=== PATIENT | male | born 1950 | race Asian ===

== ENCOUNTER 2016-12-28 20:18 | Emergency (ER) | payer MEDICARE, OTHER ==
[~2016-12-28] VITALS: Ht 170.2 cm; Wt 65.0 kg
[~2016-12-28 20:18] MED LIST: AMLO10TA2 PO; CEPH-264; HYDR12.53 PO; IRON18TA PO
[2016-12-28] MEDS ORDERED: amLODIPine BESYLATE 5 MG TABLET PO ONE (20:45)
[2016-12-28] MEDS ORDERED: cloNIDine HCL 0.1 MG TABLET PO ONE (20:45)
[2016-12-28] MEDS ORDERED: LISI10TA2 PO (21:55)
--- NOTE | 2016-12-28 21:56 | PHYS DOC ---
Past History Past Medical History: Hypertension Past Surgical History: No Surgical History Smoking: Non-smoker Alcohol Use: None Drug Use: None Adult General Chief Complaint Chief Complaint: HYPERTENSION HPI HPI Patient is a 58-year-old gentleman who presents to the ER today secondary to nighttime headaches. Patient has just been seen by his doctor approximately 2 days ago. Patient had a full workup including full labs, CT of his head and CT his abdomen. Patient does have a history that is significant for hypertension, abdominal aortic and rhythm status post repair, patient's medications of an altered I Dr. Burrell. Patient reports he still having nighttime headaches. Patient is currently on lisinopril 2.5 mg daily and metoprolol 25 mg. Patient denies any fevers shakes chills nausea vomiting diarrhea cough cold runny nose. Patient has no weakness in his upper or lower extremities. This. No double vision or blurred vision. No urinary symptoms. No chest pain or shortness of breath. Review of systems: Constitutional: Denies fever or chills Eyes: Denies change in visual acuity, redness, or eye pain HENT: Denies nasal congestion or sore throat All other systems were reviewed and found to be within normal limits, except as documented in this note. Physical exam Constitutional: Well developed, well nourished, no acute distress, non-toxic appearance. HENT: Normocephalic, atraumatic, bilateral external ears normal, oropharynx moist, no oral exudates, nose normal. Eyes: PERRLA, EOMI, conjunctiva normal, no discharge. Neck: Normal range of motion, no tenderness, supple, no stridor. Cardiovascular:Heart rate regular rhythm, Lungs & Thorax: Bilateral breath sounds clear to auscultation Abdomen: Bowel sounds normal, soft, no tenderness, no masses, no pulsatile masses. Skin: Warm, dry, no erythema, no rash. Back: No tenderness, no CVA tenderness. Extremities: No tenderness, no cyanosis, no clubbing, ROM intact, no edema. Neurologic: Alert and oriented X 3, normal motor function, normal sensory function, no focal deficits noted. Psychologic: Affect normal, judgement normal, mood normal. Assessment and plan: 1. 58-year-old gentleman with hypertension and nighttime headaches. I discussed the case fully with Dr. Burrell was recommended that we increase his lisinopril to 10 mg daily. Patient has been given clonidine 0.1 as well as amlodipine 5 mg here in the ED with significant improvement in his blood pressure. Patient's blood pressure is currently 154/86. Patient feels well. Patient currently has no headache is a symptomatically. I discussed with the patient and his to increase his lisinopril and we will write him a new prescription for it. Patient is instructed to follow-up with Dr. Burrell this week. Current Medications Current Medications Current Medications Medications (Trade) Dose Ordered Sig/Arvind Start Time Stop Time Status Last Admin Dose Admin Amlodipine Besylate (Norvasc) 5 mg 1X ONCE 12/28/16 20:45 12/28/16 20:46 DC 12/28/16 21:03 5 MG Clonidine HCl (Catapres) 0.1 mg 1X ONCE 12/28/16 20:45 12/28/16 20:46 DC 12/28/16 21:02 0.1 MG Allergies Allergies Allergies Coded Allergies Type Severity Reaction Last Updated Verified No Known Drug Allergies 03/13/13 No Current Patient Data Vital Signs Vital Signs Date Time Temp Pulse Resp B/P (MAP) Pulse Ox O2 Delivery O2 Flow Rate FiO2 12/28/16 21:03 64 164/104 12/28/16 20:33 20 98 Room Air EKG EKG [] Radiology/Procedures Radiology/Procedures [] Course & Med Decision Making Course & Med Decision Making Pertinent Labs and Imaging studies reviewed. (See chart for details) [] Dragon Disclaimer Dragon Disclaimer This electronic medical record was generated, in whole or in part, using a voice recognition dictation system. Departure Departure: Impression: Primary Impression: Headache Additional Impression: Hypertension Disposition: 01 HOME, SELF-CARE Condition: IMPROVED Referrals: PABLO WIGGINS (PCP) Patient Instructions: General Headache Without Cause, Hypertension Scripts Lisinopril (LISINOPRIL) 10 Mg Tablet 1 TAB PO DAILY, #30 TAB 5 Refills Prov: LIYA PIERRE MD 12/28/16 Problem Qualifiers LIYA PIERRE MD Dec 28, 2016 21:56
[2016-12-28 22:05] VITALS: BP 143/84
[2016-12-31] MEDS ORDERED: AMLO5TAB2 PO (16:40)
== END 2016-12-28 22:08 | disposition home or self-care (01) ==
LOC: ER 20:18
DX: R51 Headache (principal); I10 Essential (primary) hypertension
CPT/HCPCS: 99283

== ENCOUNTER 2016-12-30 05:38 | Inpatient (IN) | payer MEDICARE, OTHER ==
[~2016-12-30] VITALS: Ht 167.6 cm; Wt 64.9 kg
[~2016-12-30 05:38] MED LIST changes: +LISI10TA2 PO
--- NOTE | 2016-12-30 06:27 | EKG ---
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
[2016-12-30] MEDS ORDERED: SUMAtriptan. 6 MG/0.5 ML VIAL SQ ONE (06:30)
[2016-12-30] MEDS ORDERED: KETOROLAC 30 MG/ML VIAL. IV ONE (06:30)
[2016-12-30] MEDS ORDERED: IV NORMAL SALINE 1,000ML 1,000 ML IV SCH ×2 (06:30→11:30)
[2016-12-30] MEDS ORDERED: ONDANSETRON PF 4 MG/2 ML VIAL. IV ONE (06:30)
[2016-12-30 06:36] LABS: BASO # 0.1 x10^3/uL (0.0-0.2); BASO % 1 % (0-3); EOS # 0.1 x10^3/uL (0.0-0.7); EOS % 1 % (0-3); HEMATOCRIT 43.2 % (39.0-53.0); HEMOGLOBIN 15.4 g/dL (13.0-17.5); LYMPH # 1.9 x10^3/uL (1.0-4.8); LYMPH % 23 % (24-48); MEAN CORPUSCULAR HEMOGLOBIN 33 pg (25-35); MEAN CORPUSCULAR HGB CONC 36 g/dL (31-37); MEAN CORPUSCULAR VOLUME 93 fL (79-100); MONO # 0.6 x10^3/uL (0.0-1.1); MONO % 7 % (0-9); NEUT # 5.7 x10^3uL (1.8-7.7); NEUT % 68 % (31-73); PLATELET COUNT 199 x10^3/uL (140-400); RED BLOOD COUNT 4.64 x10^6/uL (4.30-5.70); RED CELL DISTRIBUTION WIDTH 13.1 % (11.5-14.5); WHITE BLOOD COUNT 8.4 x10^3/uL (4.0-11.0)
[2016-12-30 06:51] LABS: ALBUMIN 3.8 g/dL (3.4-5.0); CALCIUM 8.1 mg/dL (8.5-10.1); CREATININE 1.2 mg/dL (0.7-1.3); GFR 60.2; TOTAL BILIRUBIN 1.8 mg/dL (0.2-1.0); TOTAL PROTEIN 7.6 g/dL (6.4-8.2)
[2016-12-30 06:53] LABS: POTASSIUM 2.9 mmol/L (3.5-5.1)
[2016-12-30] MEDS ORDERED: POTASSIUM CHLORIDE 20 MEQ/15 ML ORAL LIQUID. PO ONE (07:00)
--- NOTE | 2016-12-30 07:50 | PHYS DOC ---
General Chief Complaint: HYPERTENSION Stated Complaint: ELEV BLOOD PRESURE HEADACHE Time Seen by MD: 06:09 Source: patient, family Exam Limitations: language barrier Problems: History of Present Illness Initial Comments Patient is a 66-year-old male who comes to the ED with his spouse complaining of headache due to high blood pressure. Patient's [place] language is Amharic, Amharic management aide emergency department employee translated as the history was difficult initially with just me alone. Through the management aide patient and spouse state that 5-7 days ago the patient had a few days of abdominal discomfort and nausea and vomiting. Since that time the patient has had very little to eat as he was afraid he would get sick again , he has had a few sips daily of white rice and plain water. Patient was seen in the emergency department December 28 for headache at that time presumably due to high blood pressure. The patient had just recently had labs and MRI with primary care doctor which at the time were normal. Patient states that his lisinopril was increased from 2.5 mg to 10 mg daily at last visit, and among his other medications he continues to take hydrochlorothiazide 12.5 mg. He's had a persistent headache which has kept him awake at night and contributed to his decreased appetite. Headache is worse when standing and active better when lying. He's had decreased urination with dark urine no further nausea vomiting and no diarrhea no abdominal discomfort. Patient has cardiac history, he specifically denies chest pain shortness of breath diaphoresis arm or neck symptoms palpitations or syncope. Initial blood pressure on arrival 154/90, 15 minutes later after he has settled down its 142/85 patient has not taken his daily medications yet today. Headache is described as global throbbing and severe and as stated worse with activity better with rest. No vision changes no neck stiffness fever chills or rash. No recent travel or tick bites and no lateralizing neuro deficits. No head trauma. Timing/Duration: 1 week, constant Severity: severe Modifying Factors: worse with movement, improves with rest Associated Symptoms: headaches, nausea/vomiting Allergies: Coded Allergies: No Known Drug Allergies (Unverified , 03/13/13) Past Medical History Medical History: other (hypertension, coronary artery disease, ruptured AAA, pulmonary hypertension, CVA) Surgical History: other (AAA repair, cholecystectomy) Social History Smoker: non-smoker Alcohol: occasionally Drugs: none Review of Systems Constitutional: denies chills, denies diaphoresis, denies fever, malaise, weakness EENTM: denies eye pain, denies blurred vision, denies ear pain, denies nose pain, denies throat pain, denies mouth pain Respiratory: denies cough, denies orthopnea, denies shortness of breath, denies wheezing Cardiovascular: denies chest pain, denies edema, denies palpitations, denies syncope Gastrointestinal: abdominal pain, denies constipation, denies diarrhea, nausea , vomiting Genitourinary: see HPI, denies dysuria, denies frequency, denies hematuria Musculoskeletal: denies back pain, denies joint swelling, muscle pain, muscle stiffness (cramping), denies neck pain Psychiatric/Neurological: headache, denies numbness, denies paresthesia, denies seizure, denies tingling, denies weakness Hematologic/Lymphatic: denies blood clots, denies easy bleeding, denies easy bruising Physical Exam General Appearance: WD/WN, moderate distress (ill-appearing, pale appears dry or anemic) Eyes: bilateral eye normal inspection, bilateral eye PERRL, bilateral eye EOMI Ear, Nose, Throat: hearing grossly normal, normal ENT inspection, normal pharynx (very dry mucous membranes) Neck: non-tender, supple Respiratory: chest non-tender, lungs clear, normal breath sounds, no respiratory distress Cardiovascular: normal peripheral pulses, regular rate, rhythm Gastrointestinal: normal bowel sounds, non tender, soft Rectal: deferred Back: no CVA tenderness, no vertebral tenderness Extremities: normal range of motion, non-tender, normal inspection, no pedal edema, no calf tenderness, pelvis stable Neurologic/Psychiatric: media reporter II-XII nml as tested, no motor/sensory deficits, alert, normal mood/affect, oriented x 3 Skin: warm/dry, pallor (poor turgor) Orders, Labs, Meds EKG: Normal sinus rhythm 62 bpm, incomplete right bundle branch block, LVH, baseline artifact no STEMI criteria. Similar to study dated March 13, 2013 on record interpreted by Dr. Flores. PATIENT: JOSIAS DICKEY ACCOUNT: [id number] : 1950 LOCATION: ER AGE: 66 SEX: M EXAM STATUS: REG ER ORD. PHYSICIAN: JOVANY FLORES DO REASON: hyponatremia PROCEDURE: CHEST PA & LATERAL EXAM: Chest 2 views. HISTORY: Weakness, hyponatremia. COMPARISON: 03/13/2013. FINDINGS: Frontal and lateral views of the chest are obtained. There are no confluent infiltrates. There is no pneumothorax or pleural effusion. The heart is not enlarged. The aorta appears tortuous but is stable in contour. Surgical clips project in the right infraclavicular region and at the hiatus. IMPRESSION: 1. No confluent infiltrates. DICTATED AND SIGNED BY: DONALD LOPEZ MD DATE: 12/30/16 0706 CC: PABLO WIGGINS; JOVANY FLORES DO ~ Patient received Toradol 30 mg IV, sumatriptan and 6 subcutaneous, and Zofran 4 mg IV as well as a 1 L normal saline IV bolus upon arrival. 0745: Patient rechecked he's feeling much better his color has improved he is now sitting up with a normal expression. Spouse is not in the room neither is management aide patient advised I would return. 0811: Serum potassium 2.9, sodium 122 patient is symptomatic with his electrolyte abnormalities and will require inpatient treatment. glucose 132, t. bili 1.8, calcium 8.1, trop I 0.026, BNP 478. Patient and spouse are agreeable , they advise no new or worsening symptoms patient is improving headache nearly resolved. Patient still without chest pain or trouble breathing. Through the management aide I clarified with the patient and spouse that primary care doctor is Dr. Licona. I left a message for Dr. Carroll. 0839: Pt discussed with Dr Carroll, after thorough discussion of history, presentation, and findings he recommends inpatient telemetry admission for hydration and electrolyte correction. Impressions: Symptomatic hypovolemic hyponatremia/hypokalemia Persistent headache likely second to above. Hypertension History of recent GI illness with decreased by mouth intake. Departure Time of Disposition: 08:36 Disposition: 09 ADMITTED INPATIENT Condition: IMPROVED JOVANY FLORES DO Dec 30, 2016 07:50
--- NOTE | 2016-12-30 08:00 | EKG ---
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
[2016-12-30] MEDS ORDERED: ONDANSETRON PF 4 MG/2 ML VIAL. IV PRN (08:45)
[2016-12-30] MEDS ORDERED: ACETAMINOPHEN 325 MG TABLET PO PRN ×2 (08:45→12:45)
[2016-12-30 10:55] VITALS: BP 165/93
[2016-12-30] MEDS ORDERED: POTASSIUM CHLORIDE 30 MEQ in IV 1/2 NORMAL SALINE 1,000 ML IV SCH (11:30)
[2016-12-30] MEDS ORDERED: ISOS30TA4 PO (11:38)
[2016-12-30] MEDS ORDERED: LISI2.5T PO (11:38)
[2016-12-30] MEDS ORDERED: METO25TA4 PO (11:38)
[2016-12-30] MEDS ORDERED: HYDROmorphone PF 2 MG/ML VIAL IV PRN (11:45)
[2016-12-30] MEDS ORDERED: ONDANSETRON ODT 4 MG TAB.RAPDIS PO PRN (11:45)
[2016-12-30] MEDS ORDERED: VIT1TABL34 PO (12:26)
[2016-12-30] MEDS ORDERED: OMEG-33 PO (12:26)
[2016-12-30] MEDS ORDERED: ACET325T9 PO (12:26)
[2016-12-30] MEDS ORDERED: CHOL10003 PO (12:26)
[2016-12-30] MEDS ORDERED: ASPI-630 PO (12:26)
[2016-12-30] MEDS ORDERED: ATOR20TA58 PO (12:26)
[2016-12-30] MEDS ORDERED: LISI10TA2 PO (12:31)
[2016-12-30] MEDS ORDERED: ATORVASTATIN CALCIUM 20 MG TABLET PO SCH ×2 (12:45→21:00)
[2016-12-30] MEDS ORDERED: amLODIPine BESYLATE 10 MG TABLET PO SCH (12:45)
[2016-12-30] MEDS ORDERED: ASPIRIN 81 MG TAB.CHEW PO SCH ×2 (12:45→21:00)
[2016-12-30] MEDS ORDERED: ENOXAPARIN 40 MG/0.4 ML DISP.SYRIN. SQ SCH (13:00)
[2016-12-30] MEDS: POTASSIUM CL 40MEQ IN 0.9%NACL 1,000 ML IV SCH (13:55)
[2016-12-30] MEDS: PANTOPRAZOLE IV PUSH 40 MG VIAL. IVP SCH (14:03)
[2016-12-30 14:04] VITALS: BP 129/80
[2016-12-30] MEDS: METOPROLOL TART IMMED RELEASE 25 MG TABLET PO SCH (14:07)
[2016-12-30] MEDS: LISINOPRIL 10 MG TABLET PO SCH (14:07)
[2016-12-30] MEDS: ISOSORBIDE MONONITRATE ER 30 MG TAB.ER.24H PO SCH (14:08)
[2016-12-30] MEDS: CHOLECALCIFEROL (VITAMIN D3) 1,000 UNIT TABLET PO SCH (14:09)
[2016-12-30 15:49] LABS: AMPHETAMINE/METHAMPHETAMINE NEG (NEG); BARBITURATES NEG (NEG); BENZODIAZEPINES NEG (NEG); CANNABINOIDS NEG (NEG); COCAINE NEG (NEG); METHADONE NEG (NEG); OPIATES NEG (NEG); PHENCYCLIDINE NEG (NEG)
[2016-12-30] MEDS ORDERED: ACETAMINOPHEN 325 MG TABLET PO SCH (16:00)
[2016-12-30 16:11] VITALS: BP 128/81
--- NOTE | 2016-12-30 16:34 | RAD ---
Indication: Headache. Grayscale, color-flow and duplex Doppler evaluation of bilateral carotid systems was performed. No significant atherosclerotic plaque is identified in either carotid system. The velocities are normal bilaterally. No velocity elevation or stenosis is identified. Both vertebral arteries demonstrate antegrade flow. Peak CCA velocity on the right is 34 cm/s and on the left 24 cm/s. Peak ICA velocity on the right is 42 cm/s and on the left 32 cm/s. ICA to CCA ratio right is 1.2 and left is 1.3. Impression: No evidence of a hemodynamically significant stenosis.
[2016-12-30 16:40] LABS: BACTERIA,URINE 0 /HPF (0-FEW); BILIRUBIN,URINE NEG (NEG); CLARITY,URINE CLEAR; COLOR,URINE YELLOW; GLUCOSE,URINE NEG (NEG); NITRITE,URINE NEG (NEG); SQUAMOUS EPITHELIAL CELL,UR FEW /LPF; UROBILINOGEN,URINE 0.2 mg/dL (0.2 mg/dL)
[2016-12-30] MEDS ORDERED: CONTRAST GIVEN MC PRN (18:15)
[2016-12-30] MEDS ORDERED: IOHEXOL 300 MG/ML 75 ML VIAL. IV ONE (18:30)
--- NOTE | 2016-12-30 19:02 | RAD ---
CTA scan of the Chest with Contrast (Pulmonary Embolism protocol) 12/30/2016 Clinical History: Chest pain. Elevated d-dimer. Technique: After the intravenous administration of 75 cc of Omnipaque 300, contiguous, 0.625 mm axial sections were obtained through the chest. 3 mm axial and 3D MIP coronal and sagittal reconstructed images were obtained. One or more of the following individualized dose reduction techniques were utilized for this study: 1. Automated exposure control. 2. Adjustment of the mA and/or kV according to patient size. 3. Use of iterative reconstruction technique. Findings: No filling defect is seen within the major branches of either pulmonary artery. There is no CT evidence of pulmonary embolism. The heart is mildly enlarged. Atherosclerotic calcification of the thoracic aorta and its branches is seen. The thoracic aorta is tortuous but tapers normally. A bypass graft is seen extending from the region of the right axillary artery along the right anterolateral chest wall into the abdomen. The inferior extent is not included on this study. Dependent subsegmental atelectasis is seen involving both lungs. No area of consolidation, pleural effusion or pneumothorax is seen. Impression: There is no CT evidence of pulmonary embolism. Electronically signed by: Bryan Santiago MD (12/30/2016 6:58 PM) [facility]
[2016-12-30 19:27] VITALS: BP 112/60
[2016-12-30] MEDS: POTASSIUM CHLORIDE 20 MEQ TABLET.ER. PO SCH (20:19)
[2016-12-30 23:46] VITALS: BP 124/75
--- NOTE | 2016-12-31 02:58 | CONS ---
DATE OF CONSULTATION: 12/30/2016 REFERRING PHYSICIAN: Dr. Carroll. REASON FOR CONSULTATION: Severe headaches. HISTORY OF PRESENT ILLNESS: This is a 66-year-old Sinhala male who was admitted through Emergency Room after he presented with chief complaints of recurrent severe global headache described as throbbing headaches for approximately 10 days. The patient was seen in the Emergency Room on 12/28/2016 and he was found to have severe hypertension. He was given lisinopril 10 mg. The patient, however, was taking 2.5 mg of lisinopril. The patient was worked up by his primary care physician and a brain MRI was performed and revealed no abnormalities. The patient has been taking hydrochlorothiazide 12.5 mg daily, but he continues to have a generalized headaches. He denies photophobia, phonophobia, but he did vomit twice in the last 5 days. At this time of evaluation, the patient denies any headaches, visual disturbances, nausea, vomiting, chest pain, shortness of breath or palpitation, dysarthria, dysphagia or palpitations. His blood pressure has been fluctuating between 154/90-142/85. The patient has not been eating well because of abdominal discomfort and sometimes nausea. PAST MEDICAL HISTORY: Significant for hypertension, pulmonary hypertension, history of stroke. PAST SURGICAL HISTORY: Abdominal aortic aneurysm repair and cholecystectomy. SOCIAL HISTORY: The patient denies smoking, but he drinks alcohol occasionally. 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 CURRENT MEDICATIONS: Multivitamins, fish oil, Lipitor 20 mg p.o. at bedtime, aspirin 81 mg at bedtime, potassium chloride 20 mEq twice daily, Lovenox 40 mg subQ 24 hours, Protonix 40 mg IV daily, metoprolol 25 mg daily, lisinopril 10 mg p.o. daily and Imdur 30 mg daily, vitamin D3 1000 units daily, Tylenol, Dilaudid 2 mg q. 2 hours p.r.n. IV as needed and Zofran 4 mg q. 8 hours or IV 4 hours as needed. PHYSICAL EXAMINATION: GENERAL: Well-developed, well-nourished Sinhala male, not in acute distress. VITAL SIGNS: He weighs 140 pounds. Blood pressure 128/81, respiratory rate 20, pulse is 60 and regular, temperature 97.8, oxygen saturation is 96% on room air. HEENT: Normocephalic, atraumatic, otherwise unremarkable. NECK: Supple. Negative for carotid bruit, lymphadenopathy or thyromegaly. LUNGS: Clear to A and P. CARDIOVASCULAR: Regular rate and rhythm, normal S1, S2. There is no S3, S4 or murmur. ABDOMEN: Soft. Bowel sounds positive. EXTREMITIES: Negative for cyanosis, clubbing or pitting edema. NEUROLOGICAL: Mental Status: The patient is alert and oriented x 3. The speech is fluent. There is no language dysfunction. Memory, judgment, and abstract thinking are normal. The patient denies hallucination or delusion. Cranial nerves: Cranial nerves are intact. Visual beach are full. The pupils are reactive to light and accommodation. Extraocular movements are intact. There is no nystagmus. There is no facial motor or sensory deficit. Hearing is intact bilaterally. The palate is elevated symmetrically. Sternocleidomastoid muscles are powerful bilaterally. The patient shrugs his shoulders symmetrically and protrudes his tongue in the midline without fasciculation or atrophy. Motor: No focal muscle bulk was seen. The tone is normal. The strength is 5/5 throughout. Sensory: Examination revealed normal pinprick, light touch, vibratory and position senses. Deep tendon reflexes were symmetric and hypoactive without pathology responses. Gait: The stance is steady. The patient has normal gait. DIAGNOSTIC DATA: A brain MRI performed on an outpatient basis, was reportedly normal. Current chest x-ray revealed no evidence of acute cardiopulmonary process. Carotid Doppler study revealed no acute stenosis. LABORATORY DATA: CBC revealed white blood cells of 8.4, hemoglobin 15.4, hematocrit 43.2, platelet count 199,000. Chemistry revealed sodium of 122, potassium is 2.9, chloride 87, CO2 22, BUN 11, creatinine 1.2, glucose is 132, calcium 8.1. Liver enzymes are normal. NPB in the high at 478. Troponin level is 0.026. Urine drug screen is negative. Coagulation: D-dimer is high at 5.67. IMPRESSION: 1. Severe global headaches, likely non-migraine headaches, probably secondary to hypertension versus dehydration. 2. Hyponatremia and hypokalemia and hypocalcemia. 3. Hypertension. 4. Coagulopathy. RECOMMENDATIONS: 1. Continue with current management for hypertension. 2. Continue with current care initiated by Dr. Carroll. 3. Correct the underlying hyponatremia slowly. 4. Correct the underlying hypokalemia and hypocalcemia. 5. Continue with aspirin and Lovenox, Tylenol for headaches. M Ramona JACOBO MD DR: NABIL/tiarra JOB#: [id number] / [id number]
[2016-12-31] MEDS: POTASSIUM CL 40MEQ IN 0.9%NACL 1,000 ML IV SCH (04:16)
[2016-12-31 05:50] VITALS: BP 124/81
[2016-12-31 06:52] LABS: BASO # 0.2 x10^3/uL (0.0-0.2); BASO % 3 % (0-3); EOS # 0.4 x10^3/uL (0.0-0.7); EOS % 6 % (0-3); HEMATOCRIT 38.8 % (39.0-53.0); HEMOGLOBIN 13.5 g/dL (13.0-17.5); LYMPH # 1.5 x10^3/uL (1.0-4.8); LYMPH % 24 % (24-48); MEAN CORPUSCULAR HEMOGLOBIN 34 pg (25-35); MEAN CORPUSCULAR HGB CONC 35 g/dL (31-37); MEAN CORPUSCULAR VOLUME 97 fL (79-100); MONO # 0.5 x10^3/uL (0.0-1.1); MONO % 9 % (0-9); NEUT # 3.5 x10^3uL (1.8-7.7); NEUT % 58 % (31-73); PLATELET COUNT 185 x10^3/uL (140-400); RED BLOOD COUNT 4.02 x10^6/uL (4.30-5.70); RED CELL DISTRIBUTION WIDTH 13.5 % (11.5-14.5); WHITE BLOOD COUNT 6.1 x10^3/uL (4.0-11.0)
[2016-12-31 07:11] LABS: ALBUMIN/GLOBULIN RATIO 0.9 (1.0-1.7); CREATININE 1.3 mg/dL (0.7-1.3); GFR 54.9; POTASSIUM 4.7 mmol/L (3.5-5.1); TOTAL BILIRUBIN 0.8 mg/dL (0.2-1.0); TOTAL PROTEIN 6.2 g/dL (6.4-8.2)
[2016-12-31] MEDS ORDERED: PANTOPRAZOLE IV PUSH 40 MG VIAL. IVP SCH (07:30)
[2016-12-31] MEDS: PANTOPRAZOLE IV PUSH 40 MG VIAL. IVP SCH (07:58)
[2016-12-31] MEDS: CHOLECALCIFEROL (VITAMIN D3) 1,000 UNIT TABLET PO SCH (07:59)
[2016-12-31] MEDS: POTASSIUM CHLORIDE 20 MEQ TABLET.ER. PO SCH (07:59)
[2016-12-31] MEDS: LISINOPRIL 10 MG TABLET PO SCH (08:01)
[2016-12-31] MEDS: METOPROLOL TART IMMED RELEASE 25 MG TABLET PO SCH (08:02)
[2016-12-31] MEDS: ISOSORBIDE MONONITRATE ER 30 MG TAB.ER.24H PO SCH (08:03)
[2016-12-31] MEDS ORDERED: OMEGA-3 FATTY ACIDS/FISH OIL 1,000 MG CAPSULE. PO SCH (09:00)
[2016-12-31] MEDS ORDERED: ATORVASTATIN CALCIUM 20 MG TABLET PO SCH (09:00)
[2016-12-31] MEDS ORDERED: ISOSORBIDE MONONITRATE ER 30 MG TAB.ER.24H PO SCH (09:00)
[2016-12-31] MEDS ORDERED: PNEUMOC CONJ VACC 23-VALENT 0.5 ML VIAL. VAX IM ONE (09:00)
[2016-12-31] MEDS ORDERED: CHOLECALCIFEROL (VITAMIN D3) 1,000 UNIT TABLET PO SCH (09:00)
[2016-12-31] MEDS ORDERED: LISINOPRIL 2.5 MG TABLET PO SCH (09:00)
[2016-12-31] MEDS ORDERED: LISINOPRIL 10 MG TABLET PO SCH ×2 (09:00)
[2016-12-31] MEDS ORDERED: amLODIPine BESYLATE 10 MG TABLET PO SCH (09:00)
[2016-12-31] MEDS ORDERED: MULTIVITAMIN I-VITE TABLET. PO SCH (09:00)
[2016-12-31] MEDS ORDERED: ASPIRIN 81 MG TAB.CHEW PO SCH (09:00)
[2016-12-31] MEDS ORDERED: METOPROLOL TART IMMED RELEASE 25 MG TABLET PO SCH (09:00)
--- NOTE | 2016-12-31 09:09 | PN ---
DATE: SUBJECTIVE: The patient stated his headache has improved and this morning feels like throbbing headaches rated at 1/10. He denies nausea, vomiting, abdominal pain, chest pain, shortness of breath or palpitation, dysarthria, dysphagia, weakness or paresthesia. OBJECTIVE: GENERAL: Well-developed, well-nourished Bengali male, not in acute distress. VITAL SIGNS: Afebrile. Temperature 98.1, oxygen saturation is 96% on room air, blood pressure 124/81, respiratory rate 16, pulse is 50. HEENT: Normocephalic, atraumatic, otherwise unremarkable. NECK: Supple. Negative for carotid bruit, lymphadenopathy or thyromegaly. LUNGS: Clear to A and P. CARDIOVASCULAR: Regular rhythm, normal S1, S2. There is no S3, S4 or murmur. ABDOMEN: Soft. Bowel sounds positive. EXTREMITIES: Negative for cyanosis, clubbing or pitting edema. NEUROLOGIC: Normal mental status and intact cranial nerves. There is no focal motor or sensory deficit. Deep tendon reflexes are symmetric and active without pathologic responses. Deep tendon reflexes were symmetric and active without pathology responses. Gait and coordination are was normal. LABORATORY DATA: CBC revealed white blood cells of 6.1, hemoglobin 13.5, hematocrit 38.8, platelet count 185,000. Chemistry revealed sodium of 139, potassium 4.7, chloride 106, CO2 26, BUN 16, creatinine 1.3, glucose 91, and calcium 8. IMPRESSION: 1. Severe headache -- resolved. 2. Hyponatremia -- resolved. 3. Hypokalemia -- resolved. 4. Coagulopathy. RECOMMENDATIONS: Continue with current management initiated by Dr. Carroll. The patient is neurologically stable. M Ramona JACOBO MD DR: NABIL/tiarra JOB#: [id number] / [id number]
--- NOTE | 2016-12-31 09:22 | PDOC2 ---
CONSULT Date of Admission DATE: 12/31/16 TIME: 09:09 Reason for Consult: HTN History of Present Illness Mr Dodd is a 66 year old male admitted to the hospital after several days of abdominal discomfort, decreased oral intake and headache. He was found to be hyponatremic and hypokalemic with elevated blood pressure. He is currently feeling better. He denies any prior cardiac history, he denies chest discomfort , dyspnea or congestive symptoms. He denies edema, palpitations or lightheadedness. He was noted this am to be bradycardic and consult was called for mgmt of blood pressure / medications. Past Medical History Significant for hypertension, pulmonary hypertension, history of stroke. Past Surgical History Abdominal aortic aneurysm repair, fem-fem bypass, and cholecystectomy, cataract surgery bilateral Social History The patient denies smoking, but he drinks alcohol occasionally. He is retired [employer] male. Current Medications Current Medications Sodium Chloride 1,000 ml @ 1,000 mls/hr Q1H IV Last administered on 06:37; Start 12/30/16 at 06:30; Stop 12/30/16 at 07:29; Status DC Ketorolac Tromethamine (Toradol) 30 mg 1X ONCE IV Last administered on 06:38; Start 12/30/16 at 06:30; Stop 12/30/16 at 06:31; Status DC Sumatriptan Succinate (Imitrex) 6 mg 1X ONCE SQ Last administered on 06:38; Start 12/30/16 at 06:30; Stop 12/30/16 at 06:31; Status DC Ondansetron HCl (Zofran) 4 mg 1X ONCE IV Last administered on 12/30/16 06:37 ; Start 12/30/16 at 06:30; Stop 12/30/16 at 06:31; Status DC Potassium Chloride (KCl Oral Soln) 40 meq 1X ONCE PO Last administered on 07:32; Start 12/30/16 at 07:00; Stop 12/30/16 at 07:09; Status DC Ondansetron HCl (Zofran) 4 mg PRN Q4HRS PRN IV NAUSEA/VOMITING; Start at 08:45; Stop 12/31/16 at 08:44; Status DC Acetaminophen (Tylenol) 650 mg PRN Q4HRS PRN PO FEVER; Start 12/30/16 at 08:45 ; Stop 12/30/16 at 12:52; Status DC Sodium Chloride 1,000 ml @ 75 mls/hr [id number] IV ; Start 12/30/16 at 11:30; Stop 12/30/16 at 12:41; Status DC Potassium Chloride 30 meq/ Sodium Chloride 1,015 ml @ 75 mls/hr [id number] IV ; Start 12/30/16 at 11:30; Stop 12/30/16 at 12:41; Status DC Pantoprazole Sodium (Protonix Vial) 40 mg DAILYAC IVP ; Start 12/31/16 at 07:30 ; Stop 12/31/16 at 07:30; Status DC Ondansetron HCl (Zofran Odt) 4 mg PRN Q8HRS PRN PO NAUSEA/VOMITING; Start at 11:45 Hydromorphone HCl (Dilaudid) 2 mg PRN Q2HR PRN IV PAIN; Start 12/30/16 at 11: 45 Amlodipine Besylate (Norvasc) 10 mg DAILY PO ; Start 12/31/16 at 09:00; Stop 12/31/16 at 09:00; Status DC Isosorbide Mononitrate (Imdur) 30 mg DAILY PO ; Start 12/31/16 at 09:00; Stop 12/31/16 at 09:00; Status DC Lisinopril (Prinivil) 2.5 mg DAILY PO ; Start 12/31/16 at 09:00; Stop at 09:00; Status DC Lisinopril (Prinivil) 10 mg DAILY PO ; Start 12/31/16 at 09:00; Stop 12/31/16 at 09:00; Status DC Metoprolol Tartrate (Lopressor) 25 mg DAILY PO ; Start 12/31/16 at 09:00; Stop 12/31/16 at 09:00; Status DC Acetaminophen (Tylenol) 650 mg Q4HRS PO ; Start 12/30/16 at 16:00; Stop at 16:00; Status DC Aspirin (Children'S Aspirin) 81 mg DAILY PO ; Start 12/31/16 at 09:00; Stop at 09:00; Status DC Atorvastatin Calcium (Lipitor) 20 mg DAILY PO ; Start 12/31/16 at 09:00; Stop 12/31/16 at 09:00; Status DC Vitamin D (Vitamin D3) 1,000 unit DAILY PO ; Start 12/31/16 at 09:00; Stop at 09:00; Status DC Lisinopril (Prinivil) 10 mg DAILY PO ; Start 12/31/16 at 09:00; Status UNV Fish Oil (Fish Oil) 1,000 mg DAILY PO Last administered on 12/31/16 07:58; Start 12/31/16 at 09:00 Multivitamins/ Minerals (I-Marcin) 1 tab DAILY PO Last administered on 07:59; Start 12/31/16 at 09:00 Acetaminophen (Tylenol) 650 mg PRN Q4HRS PRN PO PAIN; Start 12/30/16 at 12:45 Amlodipine Besylate (Norvasc) 10 mg DAILY PO ; Start 12/30/16 at 12:45; Stop 12/30/16 at 14:18; Status DC Aspirin (Children'S Aspirin) 81 mg DAILY PO ; Start 12/30/16 at 12:45; Stop at 21:00; Status DC Atorvastatin Calcium (Lipitor) 20 mg DAILY PO ; Start 12/30/16 at 12:45; Stop 12/30/16 at 14:18; Status DC Vitamin D (Vitamin D3) 1,000 unit DAILY PO Last administered on 12/31/16 07: 59; Start 12/30/16 at 12:45 Isosorbide Mononitrate (Imdur) 30 mg DAILY PO Last administered on 12/31/16 08:03; Start 12/30/16 at 12:45 Lisinopril (Prinivil) 10 mg DAILY PO Last administered on 12/31/16 08:01; Start 12/30/16 at 12:45 Metoprolol Tartrate (Lopressor) 25 mg DAILY PO Last administered on 12/30/16 14:07; Start 12/30/16 at 12:45 Pantoprazole Sodium (Protonix Vial) 40 mg DAILYAC IVP Last administered on 07:58; Start 12/30/16 at 12:45 Potassium Chloride/Sodium Chloride 1,000 ml @ 75 mls/hr [id number] IV Last administered on 12/31/16 04:16; Start 12/30/16 at 12:45 Enoxaparin Sodium (Lovenox) 40 mg Q24H SQ Last administered on 12/30/16 14:08 ; Start 12/30/16 at 13:00 Potassium Chloride (Klor-Con) 20 meq BID PO Last administered on 12/31/16 07: 59; Start 12/30/16 at 21:00 Aspirin (Children'S Aspirin) 81 mg HS PO Last administered on 12/30/16 20:20 ; Start 12/30/16 at 21:00 Atorvastatin Calcium (Lipitor) 20 mg HS PO Last administered on 12/30/16 20: 19; Start 12/30/16 at 21:00 Pneumococcal Polyvalent Vaccine (Pneumovax 23) 0.5 ml ONCE ONCE VAX IM ; Start 12/31/16 at 09:00; Stop 12/31/16 at 09:01; Status DC Iohexol (Omnipaque 300 Mg/ml) 75 ml 1X ONCE IV Last administered on 18:17; Start 12/30/16 at 18:30; Stop 12/30/16 at 18:31; Status DC Info (Do NOT chart on this entry -- for MONITORING) 1 each PRN DAILY PRN MC SEE COMMENTS; Start 12/30/16 at 18:15; Stop 01/01/17 at 18:14 Active Scripts Active Reported Lisinopril 10 Mg Tablet 1 Tab PO DAILY LAST DOSE GIVEN: DATE: TIME: NEXT DOSE DUE: DATE: TIME: Preservision Areds Tablet (Vit A/Vit C/Vit E/Zinc/Copper) 1 Each Tablet 1 Each PO DAILY LAST DOSE GIVEN: DATE: TIME: NEXT DOSE DUE: DATE: TIME: Tylenol (Acetaminophen) 325 Mg Tablet 650 Mg PO Q4HRS LAST DOSE GIVEN: DATE: TIME: NEXT DOSE DUE: DATE: TIME: Atorvastatin Calcium 20 Mg Tablet 1 Tab PO DAILY LAST DOSE GIVEN: DATE: TIME: NEXT DOSE DUE: DATE: TIME: Vitamin D3 (Cholecalciferol (Vitamin D3)) 1,000 Unit Tablet 1 Tab PO DAILY LAST DOSE GIVEN: DATE: TIME: NEXT DOSE DUE: DATE: TIME: [place]wn 3 1,000 Mg Softgel ([place]wn-3 Fatty Acids/Fish Oil) 1 Each Capsule 1 Each PO DAILY LAST DOSE GIVEN: DATE: TIME: NEXT DOSE DUE: DATE: TIME: Aspirin 81 Mg Tab.chew 81 Mg PO DAILY LAST DOSE GIVEN: DATE: TIME: NEXT DOSE DUE: DATE: TIME: Isosorbide Mononitrate Er (Isosorbide Mononitrate) 30 Mg Tab.er.24h 1 Tab PO DAILY LAST DOSE GIVEN: DATE: TIME: NEXT DOSE DUE: DATE: TIME: Metoprolol Tartrate 25 Mg Tablet 1 Tab PO DAILY LAST DOSE GIVEN: DATE: TIME: NEXT DOSE DUE: DATE: TIME: Allergies: Coded Allergies: No Known Drug Allergies (Unverified , 03/13/13) Review of System as per HPI General: Alert, Oriented X3, Cooperative, No acute distress HEENT: Atraumatic, EOMI, Mucous membr. moist/pink Lungs: Clear to auscultation, Normal air movement Heart: Normal S1, Normal S2, Other (no gallops, clicks or rubs, mildly bradycardic) Abdomen: Normal bowel sounds, Soft, No tenderness Extremities: No cyanosis, No edema, Other (palpable pulses distally x 4) Neuro: Normal speech, Strength at 5/5 X4 ext Psych/Mental Status: Mental status NL, Mood NL VITALS Vital Signs Date Time Temp Pulse Resp B/P (MAP) Pulse Ox O2 Delivery O2 Flow Rate FiO2 12/31/16 08:03 50 124/81 12/31/16 05:50 98.1 16 96 Room Air Labs Laboratory Tests Test 12/30/16 05:55 12/30/16 14:20 12/30/16 15:30 12/31/16 06:36 White Blood Count 8.4 x10^3/uL (4.0-11.0) 6.1 x10^3/uL (4.0-11.0) Red Blood Count 4.64 x10^6/uL (4.30-5.70) 4.02 x10^6/uL (4.30-5.70) Hemoglobin 15.4 g/dL (13.0-17.5) 13.5 g/dL (13.0-17.5) Hematocrit 43.2 % (39.0-53.0) 38.8 % (39.0-53.0) Mean Corpuscular Volume 93 fL (79-100) 97 fL (79-100) Mean Corpuscular Hemoglobin 33 pg (25-35) 34 pg (25-35) Mean Corpuscular Hemoglobin Concent 36 g/dL (31-37) 35 g/dL (31-37) Red Cell Distribution Width 13.1 % (11.5-14.5) 13.5 % (11.5-14.5) Platelet Count 199 x10^3/uL (140-400) 185 x10^3/uL (140-400) Neutrophils (%) (Auto) 68 % (31-73) 58 % (31-73) Lymphocytes (%) (Auto) 23 % (24-48) 24 % (24-48) Monocytes (%) (Auto) 7 % (0-9) 9 % (0-9) Eosinophils (%) (Auto) 1 % (0-3) 6 % (0-3) Basophils (%) (Auto) 1 % (0-3) 3 % (0-3) Neutrophils # (Auto) 5.7 x10^3uL (1.8-7.7) 3.5 x10^3uL (1.8-7.7) Lymphocytes # (Auto) 1.9 x10^3/uL (1.0-4.8) 1.5 x10^3/uL (1.0-4.8) Monocytes # (Auto) 0.6 x10^3/uL (0.0-1.1) 0.5 x10^3/uL (0.0-1.1) Eosinophils # (Auto) 0.1 x10^3/uL (0.0-0.7) 0.4 x10^3/uL (0.0-0.7) Basophils # (Auto) 0.1 x10^3/uL (0.0-0.2) 0.2 x10^3/uL (0.0-0.2) Erythrocyte Sedimentation Rate 2 (0-15) Sodium Level 122 mmol/L (136-145) 139 mmol/L (136-145) Potassium Level 2.9 mmol/L (3.5-5.1) 4.7 mmol/L (3.5-5.1) Chloride Level 87 mmol/L (98-107) 106 mmol/L (98-107) Carbon Dioxide Level 22 mmol/L (21-32) 26 mmol/L (21-32) Anion Gap 13 (6-14) 7 (6-14) Blood Urea Nitrogen 11 mg/dL (8-26) 16 mg/dL (8-26) Creatinine 1.2 mg/dL (0.7-1.3) 1.3 mg/dL (0.7-1.3) Estimated GFR (Cockcroft-Gault) 60.2 54.9 BUN/Creatinine Ratio 9 (6-20) 12 (6-20) Glucose Level 132 mg/dL (70-99) 91 mg/dL (70-99) Calcium Level 8.1 mg/dL (8.5-10.1) 8.0 mg/dL (8.5-10.1) Total Bilirubin 1.8 mg/dL (0.2-1.0) 0.8 mg/dL (0.2-1.0) Aspartate Amino Transf (AST/SGOT) 18 U/L (15-37) 17 U/L (15-37) Alanine Aminotransferase (ALT/SGPT) 24 U/L (16-63) 24 U/L (16-63) Alkaline Phosphatase 69 U/L (46-116) 51 U/L (46-116) Creatine Kinase 113 U/L (39-308) Troponin I Quantitative 0.026 ng/mL (0-0.055) VN-Ymz-F-Type Natriuretic Peptide 478 pg/mL (0-124) Total Protein 7.6 g/dL (6.4-8.2) 6.2 g/dL (6.4-8.2) Albumin 3.8 g/dL (3.4-5.0) 3.0 g/dL (3.4-5.0) Albumin/Globulin Ratio 1.0 (1.0-1.7) 0.9 (1.0-1.7) Amylase Level 60 U/L (25-115) D-Dimer (Em) 5.67 mg/L (0.00-0.50) Urine Collection Type Unknown Urine Color Yellow Urine Clarity Clear Urine pH 7.0 Urine Specific Baudette 1.010 Urine Protein 30 mg/dl (NEG-TRACE) Urine Glucose (UA) Neg mg/dL (NEG) Urine Ketones (Stick) Neg mg/dL (NEG) Urine Blood Trace (NEG) Urine Nitrite Neg (NEG) Urine Bilirubin Neg (NEG) Urine Urobilinogen Dipstick 0.2 mg/dL (0.2 mg/dL) Urine Leukocyte Esterase Neg (NEG) Urine RBC 1-2 /HPF (0-2) Urine WBC 1-4 /HPF (0-4) Urine Squamous Epithelial Cells Few /LPF Urine Bacteria 0 /HPF (0-FEW) Urine Opiates Screen Neg (NEG) Urine Methadone Screen Neg (NEG) Urine Barbiturates Neg (NEG) Urine Phencyclidine Screen Neg (NEG) Urine Amphetamine/Methamphetamine Neg (NEG) Urine Benzodiazepines Screen Neg (NEG) Urine Cocaine Screen Neg (NEG) Urine Cannabinoids Screen Neg (NEG) Urine Ethyl Alcohol Neg (NEG) Lipase 370 U/L (73-393) Images CT - Impression: There is no CT evidence of pulmonary embolism. Carotid duplex - Impression: No evidence of a hemodynamically significant stenosis. CXR - IMPRESSION: 1. No confluent infiltrates. EKG - sinus rhythm, LVH by voltage, IVCD Assessment/Plan 1. accelerated hypertension - suggest echo to evaluate for LVH suggested by EKG. Discontinue metoprolol due to bradycardia. Add Norvasc for pressure control. Continue Lisinopril and monitor for any recurrent hyponatremia. Discontinue HCTZ due to hypokalemia as he is not edematous. Consider renal duplex as outpatient as he is on 3+ medications with uncontrolled blood pressure. 2. electrolyte imbalance to include hyponatremia and hypokalemia - now resolved 3. headache - likely secondary to dehydration and electrolyte imbalance - resolved. Neuro following. 4. bradycardia - mild 5. PAD s/p aortic aneurysm repair and fem-fem bypass - medical mgmt 6. hyperlipidemia - continue statin Problems: LUCIA BRYANT OPAL MINER Dec 31, 2016 09:22
[2016-12-31 10:36] VITALS: BP 160/89
--- NOTE | 2016-12-31 12:35 | CARD ---
APPROVED REPORT EXAM: Two-dimensional and M-mode echocardiogram with Doppler and color Doppler. Other Information Quality : Average Rhythm : NSR INDICATION LVH 2D DIMENSIONS Left Atrium(2D)3.6 (1.6-4.0cm)IVSd1.3 (0.7-1.1cm) Aortic Root(2D)3.6 (2.0-3.7cm)LVDd4.3 (3.9-5.9cm) LVOT Diameter2.1 (1.8-2.4cm)PWd1.3 (0.7-1.1cm) LVDs2.9 (2.5-4.0cm)FS (%) 32.3 % SV50.8 mlLVEF(%)60.9 (>50%) Aortic Valve AoV Peak Michael.160.3cm/sAoV VTI28.9cm AO Peak GR.10.3mmHgLVOT Peak Michael.126.6cm/s LVOT VTI 23.77cmAO Mean GR.5mmHg TERRANCE (VMAX)2.26pu5WXM (VTI)2.84cm2 AI P 1/2 [id number] Mitral Valve MV E Zommwmmu02.3cm/sMV DECEL [id number] MV A Vyeknhsd30.4cm/sMV GGV04be E/A Ratio0.7MV A Trmazlaw054jx MVA (PHT)3.66cm2 Tricuspid Valve TR P. Xtjflnik794al/sRAP YBESPIVS3tkWr TR Peak Gr.97teNzDVKB14ktFs Pulmonary Vein S1 Knlpawul04.5cm/sD2 Yoqmqdak20.7cm/s LEFT VENTRICLE The left ventricle is normal size. There is borderline to mild concentric left ventricular hypertroph y. Left ventricle systolic function is normal. The Ejection Fraction is 55-60%. There is normal LV se gmental wall motion. The left ventricular diastolic function and filling is normal for age. There is no ventricular septal defect visualized. RIGHT VENTRICLE The right ventricle is normal size. The right ventricular systolic function is normal. ATRIA The left atrium size is normal. The right atrium size is normal. The interatrial septum is intact wit h no evidence for an atrial septal defect or patent foramen ovale as noted on 2-D or Doppler imaging. AORTIC VALVE The aortic valve is mildly calcified. The aortic valve is trileaflet. Doppler and Color Flow revealed trace to mild aortic regurgitation. There is no significant aortic valvular stenosis. MITRAL VALVE The mitral valve is normal in structure and function. There is no mitral valve stenosis. Doppler and Color Flow revealed trace to mild mitral regurgitation. TRICUSPID VALVE The tricuspid valve is normal in structure and function. Doppler and Color Flow revealed trace tricus pid regurgitation. The PA pressure was estimated at 20 mmHg. There is no tricuspid valve stenosis. PULMONIC VALVE The pulmonic valve is not well visualized. Doppler and Color Flow revealed no pulmonic valvular regur gitation. There is no pulmonic valvular stenosis. GREAT VESSELS The aortic root is normal in size. Normal pulmonary venous flow (Doppler). The IVC is normal in size and collapses >50% with inspiration. PERICARDIAL EFFUSION There is no evidence of significant pericardial effusion. Critical Notification Critical Value: No <Conclusion> Left ventricle systolic function is normal. The Ejection Fraction is 55-60%. There is normal LV segmental wall motion.
[2016-12-31 15:20] VITALS: BP 119/69
[2016-12-31] MEDS ORDERED: AMLO5TAB2 PO (16:40)
--- NOTE | 2016-12-31 16:58 | RAD ---
EXAM: Bilateral lower extremity venous Doppler. HISTORY: Elevated d-dimer. COMPARISON: None. FINDINGS: Grayscale and Doppler analysis of the both lower extremity deep venous systems was performed with graded compression and augmentation. The common femoral, greater saphenous, superficial femoral, popliteal and calf veins were assessed. There is no evidence of deep venous thrombosis. IMPRESSION: 1. No evidence of deep venous thrombosis.
[2017-01-01] MEDS ORDERED: amLODIPine BESYLATE 5 MG TABLET PO SCH (09:00)
== END 2016-12-31 20:46 | disposition home or self-care (01) | DRG 641 ==
LOC: ER 05:38 → 1 SOUTH 08:45
PROVIDERS: ADMIT Family Medicine; ATTEND Family Medicine
DX: E87.1 Hypo-osmolality and hyponatremia (principal); D68.9 Coagulation defect, unspecified; I27.20 Pulmonary hypertension, unspecified; E83.51 Hypocalcemia; E86.0 Dehydration; I10 Essential (primary) hypertension; E86.1 Hypovolemia; E78.5 Hyperlipidemia, unspecified; E87.6 Hypokalemia; R00.1 Bradycardia, unspecified; I73.9 Peripheral vascular disease, unspecified; R14.3 Flatulence; R10.84 Generalized abdominal pain; I25.10 Atherosclerotic heart disease of native coronary artery without angina pectoris; Z79.899 Other long term (current) drug therapy; Z86.73 Personal history of transient ischemic attack (TIA), and cerebral infarction without residual deficits; Z86.79 Personal history of other diseases of the circulatory system; Z98.42 Cataract extraction status, left eye; Z98.41 Cataract extraction status, right eye; Z90.49 Acquired absence of other specified parts of digestive tract
CPT/HCPCS: 36415; 71020; 71275; 80053; 80307; 81001; 82150; 82550; 83690; 83880; 84443; 84484; 85025; 85379; 85651; 87086; 90732; 93005; 93306; 93880; 93970; C9113; J1650; J1885; J2405; J3030; Q9967; G0479; J7030

== ENCOUNTER → 2017-01-20 | Outpatient (CLI) | payer MEDICARE, OTHER ==
[2016-12-31 15:20] VITALS: BP 119/69
[~2017-01-20] MED LIST changes: +ACET325T9 PO; +AMLO5TAB2 PO; +ASPI-630 PO; +ATOR20TA58 PO; +CHOL10003 PO; +ISOS30TA4 PO; +LISI2.5T PO; +METO25TA4 PO; +OMEG-33 PO; +VIT1TABL34 PO
--- NOTE | 2017-01-20 12:46 | RAD ---
Indication: Hypertension. Technique: Grayscale, color flow and waveform analysis was performed. No comparison is available. Findings: Right kidney measures at least 9.8 cm in length and the left 11.7 cm. There is no hydronephrosis or mass. Aorta is normal caliber. Renal veins are patent. Aortic peak systolic velocity is 50 cm/s. Right renal artery peak systolic velocities range from 67-96 cm/s with ratio up to 1.9. Left renal artery peak systolic velocities range from 75-126 cm/s with ratios up to 2.6. Right resistive indices range from 0.68-0.72 and the left 0.68-0.75. Impression: No sonographic evidence of renal artery stenosis.
== END | disposition home or self-care (01) ==
LOC: US 08:31
PROVIDERS: ATTEND Family Medicine
DX: I10 Essential (primary) hypertension (principal); E87.6 Hypokalemia; E87.1 Hypo-osmolality and hyponatremia
CPT/HCPCS: 93975

== ENCOUNTER → 2018-06-16 | Outpatient (CLI) | payer MEDICARE, MEDICAID ==
[~2018-06-16] MED LIST changes: -AMLO10TA2 PO; +AMLO10TA8 PO; +AMLO5TAB10 PO; -AMLO5TAB2 PO; -HYDR12.53 PO; +HYDR12.572 PO
--- NOTE | 2018-06-16 15:36 | CARD ---
MR#: [id number] Date of Study: 06/16/2018 Ordering Physician: MALLORIE PANTOJA, Referring Physician: MALLORIE PANTOJA, Tech: Ginna Herrera [facility] APPROVED REPORT EXAM: Two-dimensional and M-mode echocardiogram with Doppler and color Doppler. Other Information Quality : Good INDICATION Cardiac Disease: CAD 2D DIMENSIONS RVDd2.5 (2.9-3.5cm)Left Atrium(2D)3.0 (1.6-4.0cm) IVSd1.1 (0.7-1.1cm)Aortic Root(2D)3.4 (2.0-3.7cm) LVDd5.5 (3.9-5.9cm)LVOT Diameter2.2 (1.8-2.4cm) PWd0.8 (0.7-1.1cm)LVDs3.7 (2.5-4.0cm) FS (%) 32.3 %SV87.9 ml LVEF(%)60.0 (>50%) Aortic Valve AoV Peak Michael.113.0cm/sAoV VTI19.7cm AO Peak GR.5.1mmHgLVOT Peak Michael.94.8cm/s LVOT VTI 21.01cmAO Mean GR.2mmHg TERRANCE (VMAX)3.57ak1LBA (VTI)4.20cm2 AI P 1/2 Pbwy551gs Mitral Valve MV E Lobbofvr27.1cm/sMV DECEL FEHS105kp MV A Jxwenntm89.9cm/sE/A Ratio0.9 Tricuspid Valve TR P. Hwlgdspc781hy/sRAP VJROMOBK3afDb TR Peak Gr.77dcBxORKO19hhDx Pulmonary Vein S1 Yaduhlgl31.0cm/sD2 Bedwlphs63.7cm/s LEFT VENTRICLE The left ventricle is normal size. There is normal left ventricular wall thickness. The left ventricu lar systolic function is normal and the ejection fraction is within normal range. The Ejection Fracti on is 55-60%. There is normal LV segmental wall motion. Transmitral Doppler flow pattern is Grade I-a bnormal relaxation pattern. RIGHT VENTRICLE The right ventricle is normal size. The right ventricular systolic function is normal. ATRIA The left atrium size is normal. The right atrium size is normal. The interatrial septum is intact wit h no evidence for an atrial septal defect or patent foramen ovale as noted on 2-D or Doppler imaging. AORTIC VALVE The aortic valve is mildly thickened but opens well. Doppler and Color Flow revealed mild to moderate aortic regurgitation. There is no significant aortic valvular stenosis. MITRAL VALVE The mitral valve is calcified but opens well. There is no evidence of mitral valve prolapse. There is no mitral valve stenosis. Doppler and Color-flow revealed trace to mild mitral regurgitation. TRICUSPID VALVE The tricuspid valve is normal in structure and function. Doppler and Color Flow revealed trace tricus pid regurgitation. The PA pressure was estimated at 24 mmHg. There is no tricuspid valve stenosis. PULMONIC VALVE Doppler and Color Flow revealed trace pulmonic valvular regurgitation. There is no pulmonic valvular stenosis. GREAT VESSELS The aortic root is normal in size. The ascending aorta is mildly dilated at 3.6 cm. The IVC is normal in size and collapses >50% with inspiration. PERICARDIAL EFFUSION There is no evidence of significant pericardial effusion. Critical Notification Critical Value: No <Conclusion> The left ventricular systolic function is normal and the ejection fraction is within normal range. Th e Ejection Fraction is 55-60%. There is normal LV segmental wall motion. Doppler and Color Flow revealed mild to moderate aortic regurgitation. The ascending aorta is mildly dilated at 3.6 cm. Signed by : Mallorie Pantoja, Electronically Approved : 06/16/2018 15:35:19
== END | disposition home or self-care (01) ==
LOC: ECHO 14:18
PROVIDERS: ATTEND Internal Medicine Cardiovascular Disease
DX: I08.0 Rheumatic disorders of both mitral and aortic valves (principal); I25.10 Atherosclerotic heart disease of native coronary artery without angina pectoris
CPT/HCPCS: 93306